=== PATIENT | male | born 1985 | race Two or more races ===

== ENCOUNTER 2017-03-07 16:46 | Emergency (ER) | payer SELFPAY ==
[~2017-03-07] VITALS: Ht 175.3 cm; Wt 102.1 kg
[~2017-03-07 16:46] MED LIST: ACETAMINOPHEN-1 EAC1 ORAL; AUGMENTIN 875-1 EAC1 ORAL; CIPRO500 MG PO; IBUPROFEN600 MG ORAL; MEDROL DOSEPAK4 MG ORAL; NKM; PREDNISONE20 MG ORAL; RANITIDINE HCL150 MG ORAL; TAMIFLU75 MG ORAL; TYLENOL EXTRA500 MG ORAL; ZOFRAN ODT4 MG ORAL
[2017-03-07] MEDS ORDERED: Tylenol #3 tab (300mg/30mg) ORAL ONE (17:15)
[2017-03-07] MEDS ORDERED: ARTIFICIAL TEAR15 ML LEFT EYE (18:14)
[2017-03-07] MEDS ORDERED: PREDNISONE20 MG ORAL (18:14)
[2017-03-07] MEDS ORDERED: ACYCLOVIR800 MG ORAL (18:14)
[2017-03-07 19:13] VITALS: BP 132/85
[2017-03-07 19:15] VITALS: BP 132/85
--- NOTE | 2017-03-08 09:52 | Diagnostic Imaging Report ---
Indication: Head pain Technique: Continuous helical CT scanning of the head was performed without intravenous contrast material. Axial and coronal 5 mm sections were generated. Radiation dose was minimized using automated exposure control Dose: Total Dose Length Product - DLP [address] Dose Index - CTDIvol(s) 70.38 mGy. Comparison: None Findings: The ventricular system is normal in size and configuration. There is no shift of midline structures. No abnormal extra-axial fluid collections are noted. There is no evidence of intracerebral bleeding. No other abnormal high or low density areas are noted within the brain. Intact calvarium. Visualized orbits and sinuses are unremarkable. The mastoids are clear Impression: Normal CT scan of the head without contrast material. This agrees with the preliminary interpretation provided overnight by [facility]. The CT scanner at [facility] is accredited by the [employer] and the scans are performed using protocols designed to limit radiation exposure to as low as reasonably achievable to attain images of sufficient resolution adequate for diagnostic evaluation.
--- NOTE | 2017-03-09 00:13 | Emergency Room Report ---
History of Present Illness General Chief Complaint: Headache Source: Patient Present Illness HPI 31-year-old male presents ED complaining of headache and left-sided facial droop. States the headache started this morning. Throbbing, 8 at 10, nonradiating. Patient also states left side of his face feels numb and he has a facial droop on the left side and is unable to close his left eye. Denies any arm or leg weakness. Denies any chest pain or shortness of breath. No other aggravating relieving factors. Denies any other associated symptoms Allergies: Coded Allergies: No Known Allergies (Unverified , 03/24/15) Patient History Past Medical History: none Past Surgical History: none Pertinent Family History: none Social History: Denies: smoking, alcohol use, drug use Immunizations: UTD Reviewed Nursing Documentation: PMH: Agreed, PSxH: Agreed Nursing Documentation-PMH Past Medical History: No Stated History Review of Systems All Other Systems: negative except mentioned in HPI Physical Exam Vital Signs Date Time Temp Pulse Resp B/P (MAP) Pulse Ox O2 Delivery O2 Flow Rate FiO2 03/07/17 16:55 98.1 88 18 132/85 98 Room Air Sp02 EP Interpretation: reviewed, normal General Appearance: no apparent distress, alert, GCS 15, non-toxic Head: normocephalic Eyes: bilateral eye normal inspection, bilateral eye PERRL, bilateral eye EOMI ENT: hearing grossly normal, normal pharynx, no angioedema, normal voice Neck: full range of motion, supple/symm/no masses Respiratory: normal inspection Cardiovascular #1: normal inspection Gastrointestinal: normal inspection Rectal: deferred Genitourinary: no CVA tenderness Musculoskeletal: back normal, gait/station normal, normal range of motion, non- tender Neurologic: alert, oriented x3, responsive, motor strength/tone normal, sensory intact, speech normal, facial droop - L sided, sensory deficit, other - unable to close L eye. unable to raise L eyebrow Psychiatric: judgement/insight normal, memory normal, mood/affect normal, no suicidal/homicidal ideation Skin: normal inspection Lymphatic: normal inspection Medical Decision Making Diagnostic Impression: Primary Impression: Schroeder's palsy ER Course 31-year-old male presents ED complaining of left-sided facial droop with difficulty opening left eye times one day. Complaining of headache Differential - CVA, intracranial bleed, bells palsy Patient placed on stretcher. After initial history physical exam reveals a male in no acute distress. There is a left-sided facial droop. Patient is unable to close the left eye. Patient is unable to raise the left eyebrow. There is no arm or leg weakness. Vital stable. CT head unremarkable Clinical picture consistent with Schroeder's palsy. Reassurance given to the patient. Patient will be discharged on acyclovir, prednisone and official tears. Recommend followup with PMD Diagnoses-bells palsy Stable and discharged to home with prescriptions for acyclovir, prednisone, artificial tears. f/up with PMD. return to ED if symptoms recur/worsen CT/MRI/US Diagnostic Results CT/MRI/US Diagnostic Results : Imaging Test Ordered: CT Head Impression no acute process Last Vital Signs Date Time Temp Pulse Resp B/P (MAP) Pulse Ox O2 Delivery O2 Flow Rate FiO2 03/07/17 19:15 98.0 76 18 132/85 98 Room Air Status: improved Disposition: HOME, SELF-CARE Condition: Stable Scripts Dextran 70/Hypromellose (ARTIFICIAL TEARS EYE DROPS*) 15 Ml Drops 1 DROP LEFT EYE QID, #15 ML 0 Refills Prov: MARYAM WHYTE M.D. 03/07/17 Prednisone* (PREDNISONE*) 20 Mg Tablet 60 MG ORAL DAILY for 5 Days, #15 TAB Prov: MARYAM WHYTE M.D. 03/07/17 Acyclovir* (ZOVIRAX*) 800 Mg Tablet 800 MG ORAL FIVE TIMES A DAY for 7 Days, TAB Prov: MARYAM WHYTE M.D. 03/07/17 Referrals: NOT CHOSEN IPA/,REFERRING (PCP) Departure Forms: Return to Work Return to Work Date: Mar 10, 2017 Work Restrictions: None Patient Instructions: Schroeder Palsy MARYAM WHYTE M.D. Mar 09, 2017 00:13
== END 2017-03-07 18:40 | disposition home or self-care (01) ==
LOC: EMR 18:22
DX: G51.0 Bell's palsy (principal); R51 Headache
CPT/HCPCS: 70450; 99284

== ENCOUNTER 2017-09-20 19:53 | Emergency (ER) | payer MEDICAID, OTHER ==
[~2017-09-20] VITALS: Ht 175.3 cm; Wt 102.1 kg
[~2017-09-20 19:53] MED LIST changes: +ACYCLOVIR800 MG ORAL; +ARTIFICIAL TEAR15 ML LEFT EYE
[2017-09-20 20:15] VITALS: BP 115/72
[2017-09-20] MEDS ORDERED: NORCO 5-325 TA1 EACH ORAL (20:15)
[2017-09-20] MEDS ORDERED: IBUPROFEN600 MG ORAL (20:15)
[2017-09-20] MEDS ORDERED: CYCLOBENZAPRINE10 MG ORAL (20:15)
[2017-09-20] MEDS ORDERED: Ketorolac 60mg Inj IM ONE (20:30)
[2017-09-20] MEDS ORDERED: Norco 5mg/325mg tab ORAL ONE (20:30)
--- NOTE | 2017-09-20 20:34 | Emergency Room Report ---
History of Present Illness General Chief Complaint: Back Pain-No Injury Source: Patient Present Illness HPI Patient presents emergency department today complaining of acute lower back pain. 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 He states that he woke up yesterday with a stiff back when he putting ice pack on his back and then went to remove the ice pack he felt a little pop in his right back and is complaining significant right back pain. The pain is nonradiating only localized the lower back. He denies any dysuria urinary frequency or paresthesias. Denies any perineal anesthesia or difficulty with urination. No other complaints are noted. Symptoms noted to be mild to moderate.No other modifying factors. No other associated signs and symptoms. No other complaints were noted. Allergies: Coded Allergies: No Known Allergies (Unverified , 03/24/15) Patient History Past Medical History: none Past Surgical History: none Pertinent Family History: none Social History: Denies: smoking, alcohol use, drug use Reviewed Nursing Documentation: PMH: Agreed; PSxH: Agreed Nursing Documentation-PMH Past Medical History: No Stated History Review of Systems All Other Systems: negative except mentioned in HPI Physical Exam Vital Signs Date Time Temp Pulse Resp B/P (MAP) Pulse Ox O2 Delivery O2 Flow Rate FiO2 09/20/17 19:57 97.8 97 18 115/72 97 Room Air 97.9 Sp02 EP Interpretation: reviewed, normal General Appearance: alert, mild distress - Due to pain Head: atraumatic Eyes: bilateral eye normal inspection ENT: normal ENT inspection, hearing grossly normal, normal voice Neck: normal inspection, full range of motion, supple, no bony tend Respiratory: normal inspection, lungs clear, normal breath sounds, no respiratory distress, no retraction, no wheezing Cardiovascular #1: regular rate, rhythm, no edema Gastrointestinal: soft Genitourinary: no CVA tenderness Musculoskeletal: tender - Lower back Neurologic: normal inspection, alert, responsive, speech normal Psychiatric: normal inspection, judgement/insight normal, mood/affect normal Skin: normal inspection, normal color, no rash Medical Decision Making Diagnostic Impression: Primary Impression: Back pain ER Course Patient presents emergency department today complaining lower back strain. Differential considerations include fracture dislocation versus strain versus radiculopathy. Patient's exam is fairly benign. History is benign as well. I wanted to perform an x-ray however given patient's history of feeling a pop. Unfortunately our x-ray machine is not available at this time. Given the patient's nontoxic-appearing I do not feel that a CT scan is warranted. I felt the patient would be better served by outpatient follow-up. Patient was given prescription for pain medications.Patient is advised to follow up with primary doctor in 2-3 days and return the emergency room for any worsening symptoms and as needed. Last Vital Signs Date Time Temp Pulse Resp B/P (MAP) Pulse Ox O2 Delivery O2 Flow Rate FiO2 09/20/17 20:15 97.9 97 18 115/72 97 Room Air 97.9 Status: improved Disposition: HOME, SELF-CARE Condition: Stable Scripts Cyclobenzaprine Hcl* (FLEXERIL*) 10 Mg Tablet 10 MG ORAL THREE TIMES A DAY, #20 TAB Prov: Kristopher Marcial MD 09/20/17 Ibuprofen* (MOTRIN*) 600 Mg Tablet 600 MG ORAL Q8H PRN for For Pain, #20 TAB 0 Refills Prov: Kristopher Marcial MD 09/20/17 Hydrocodone Bit/Acetaminophen 5-325* (NORCO 5-325*) 1 Each Tablet 1 TAB ORAL Q6H PRN for For Pain, #20 TAB 0 Refills Prov: Kristopher Marcial MD 09/20/17 Referrals: NON PHYSICIAN (PCP) Departure Forms: Return to Work Return to Work Date: Sep 25, 2017 Other Restrictions: light duty Patient Instructions: Back Pain, Adult Kristopher Marcial MD Sep 20, 2017 20:34
[2017-09-20 20:51] VITALS: BP 115/72
== END 2017-09-20 20:50 | disposition home or self-care (01) ==
LOC: EMR 20:21
DX: S39.012A Strain of muscle, fascia and tendon of lower back, initial encounter (principal); X50.0XXA Overexertion from strenuous movement or load, initial encounter; Y92.9 Unspecified place or not applicable
CPT/HCPCS: 96372; 99284

== ENCOUNTER 2017-11-07 22:55 | Emergency (ER) | payer MEDICAID, OTHER ==
[~2017-11-07] VITALS: Ht 175.3 cm; Wt 104.3 kg
[~2017-11-07 22:55] MED LIST changes: +CYCLOBENZAPRINE10 MG ORAL; +NORCO 5-325 TA1 EACH ORAL
[2017-11-07 23:09] VITALS: BP 117/80
[2017-11-07] MEDS ORDERED: Ketorolac 30mg Inj IM ONE (23:30)
[2017-11-07] MEDS ORDERED: Methocarbamol 750mg tab ORAL ONE (23:30)
[2017-11-07] MEDS ORDERED: Norco 5mg/325mg tab ORAL ONE (23:30)
[2017-11-08] MEDS ORDERED: ROBAXIN-750750 MG PO (00:04)
[2017-11-08] MEDS ORDERED: IBUPROFEN600 MG ORAL (00:04)
[2017-11-08] MEDS ORDERED: NORCO 5-325 TA1 EACH ORAL (00:04)
[2017-11-08 00:12] VITALS: BP 0/0
--- NOTE | 2017-11-08 01:29 | Emergency Room Report ---
History of Present Illness General Chief Complaint: Back Injury Source: Patient Present Illness HPI [id number] presents ED complaining of back pain. States that at work last night he lifted a heavy box and felt pain shooting down his back. Pain was throbbing, 8 out of 10, radiating down the back. Denies any bowel or bladder incontinence. Denies any leg or motor weakness. States he had similar pain last month after lifting a heavy object at work. No other aggravating relieving factors. Denies any other associated symptoms Allergies: Coded Allergies: No Known Allergies (Unverified , 03/24/15) Patient History Past Medical History: none Past Surgical History: none Pertinent Family History: none Social History: Denies: smoking, alcohol use, drug use Immunizations: UTD Reviewed Nursing Documentation: PMH: Agreed; PSxH: Agreed Nursing Documentation-PMH Past Medical History: No Stated History Review of Systems All Other Systems: negative except mentioned in HPI Physical Exam Vital Signs Date Time Temp Pulse Resp B/P (MAP) Pulse Ox O2 Delivery O2 Flow Rate FiO2 11/07/17 22:59 98.1 77 18 117/80 96 Room Air 98.1 Sp02 EP Interpretation: reviewed, normal General Appearance: no apparent distress, alert, GCS 15, non-toxic Head: normocephalic Eyes: bilateral eye normal inspection, bilateral eye PERRL ENT: normal ENT inspection Neck: normal inspection Respiratory: normal inspection Cardiovascular #1: normal inspection Gastrointestinal: normal inspection Rectal: deferred Genitourinary: no CVA tenderness, vertebral tenderness Musculoskeletal: other - paraspinal lumbar tenderness Neurologic: alert, oriented x3, responsive, motor strength/tone normal, sensory intact, speech normal Psychiatric: normal inspection Skin: normal inspection Lymphatic: normal inspection Medical Decision Making Diagnostic Impression: Primary Impression: Injury of back Qualified Codes: S39.92XD - Unspecified injury of lower back, subsequent encounter ER Course Hospital Course 31-year-old male presents ED complaining of lower back pain after living heavy box Differential diagnoses include: pyelonephritis, kidney stone, muscle strain, Lspine fracture Clinical course Patient placed on stretcher. After initial history and physical I ordered x- rays of L-spine and pain meds X-ray show no evidence of vertebral body fracture or malalignment Upon reassessment patient states pain has improved. Test findings with patient. Given that this is second episode of pain from work I recommended the patient follow up with employee health and consider option for physical therapy Diagnosis - back pain Stable and discharged to home with prescription for Motrin, Kevin, Robaxin. Followup with PMD. Return to ED if symptoms recur or worsen Other X-Ray Diagnostic Results Other X-Ray Diagnostic Results : X-Ray ordered: L spine # of Views/Limited Vs Complete: 3 View Indication: Pain EP Interpretation: Yes Interpretation: no dislocation, no soft tissue swelling, no fractures Impression: No acute disease Electronically Signed by: Electronically signed by Byron Fernández MD Last Vital Signs Date Time Temp Pulse Resp B/P (MAP) Pulse Ox O2 Delivery O2 Flow Rate FiO2 11/08/17 00:12 0/0 11/08/17 00:08 98.1 11/07/17 23:09 77 18 96 Room Air Status: improved Disposition: HOME, SELF-CARE Condition: Stable Scripts Hydrocodone Bit/Acetaminophen 5-325* (NORCO 5-325*) 1 Each Tablet 1 TAB ORAL Q6H PRN for For Pain, #10 TAB 0 Refills Prov: Byron Fernández MD 11/08/17 Methocarbamol* (ROBAXIN-750*) 750 Mg Tablet 750 MG PO TID, #21 TAB 0 Refills Prov: Byron Fernández MD 11/08/17 Ibuprofen* (MOTRIN*) 600 Mg Tablet 600 MG ORAL Q8H PRN for For Pain, #30 TAB 0 Refills Prov: Byron Fernández MD 11/08/17 Departure Forms: Return to Work Return to Work Date: Nov 10, 2017 Work Restrictions: No Heavy Lifting Patient Instructions: Back Pain, Adult Byron Fernández MD Nov 08, 2017 01:29
--- NOTE | 2017-11-08 11:45 | Diagnostic Imaging Report ---
Indication: Lower back pain after lifting package at work Technique: 3 views of the lumbar spine Comparison: None Findings:Bony alignment is normal. Vertebral body heights are preserved. The disc spaces are preserved. The pedicles are intact. Impression: No acute process This agrees with the preliminary interpretation provided by the emergency room physician
== END 2017-11-08 00:12 | disposition home or self-care (01) ==
LOC: EMR 23:21
DX: S39.92XA Unspecified injury of lower back, initial encounter (principal); X50.0XXA Overexertion from strenuous movement or load, initial encounter; Y92.89 Other specified places as the place of occurrence of the external cause; Y99.0 Civilian activity done for income or pay
CPT/HCPCS: 72020; 96372; 99284; J1885

== ENCOUNTER 2020-05-27 12:33 | Emergency (ER) | payer MEDICAID, OTHER ==
[~2020-05-27] VITALS: Ht 175.3 cm; Wt 90.7 kg
[~2020-05-27 12:33] MED LIST changes: +ROBAXIN-750750 MG PO
[2020-05-27 12:43] VITALS: BP 121/76
[2020-05-27] MEDS ORDERED: Ketorolac 30mg Inj IM ONE (12:45)
[2020-05-27] MEDS ORDERED: Methocarbamol 750mg tab ORAL ONE (12:45)
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
[2020-05-27] MEDS ORDERED: IBUPROFEN600 M1 ORAL (12:56)
[2020-05-27] MEDS ORDERED: VALIUM5 MG ORAL (12:56)
[2020-05-27] MEDS ORDERED: LIDODERM700 M1 TOPIC (12:56)
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
--- NOTE | 2020-05-27 13:12 | NUR ---
ED Nurse Note:pt medicated for pain. precautions given
[2020-05-27] MEDS ORDERED: LORazepam 1mg tab ORAL ONE (13:15)
--- NOTE | 2020-05-27 13:22 | NUR ---
ED Nurse Note: Pt cleared by health care Provider for discharge. DC instructions/prescription was given and explained to pt and verbalized understanding of teachings. All medical deviecs such as ID band removed. Pt is AAO x4, ambulatory and left with all personal belongings.
[2020-05-27 13:23] VITALS: BP 121/70
== END 2020-05-27 13:24 | disposition home or self-care (01) ==
LOC: EMR 13:06
DX: M62.830 Muscle spasm of back (principal); V43.52XA Car driver injured in collision with other type car in traffic accident, initial encounter; Y92.411 Interstate highway as the place of occurrence of the external cause
CPT/HCPCS: 96372; J1885; Z7502; 99283